=== PATIENT | male | born 1960 | race Caucasian/White ===

== ENCOUNTER → 2016-09-19 | Outpatient (CLI) | payer OTHER ==
[2016-09-19 08:01] LABS: BUN/CREATININE RATIO 14 (0-10)
== END ==
PROVIDERS: Emergency Medicine
DX: G47.09 Other insomnia (principal); I10 Essential (primary) hypertension; M54.5 Low back pain
CPT/HCPCS: 36415; 80053

== ENCOUNTER → 2020-11-07 | Outpatient (CLI) | payer OTHER ==
[2020-11-07 07:38] LABS: BUN/CREATININE RATIO 17 (0-10)
[2020-11-07 07:45] LABS: HEMOGLOBIN 15.7 gm/dl (14.0-17.5); RED BLOOD COUNT 5.65 M/UL (4.20-5.50); WHITE BLOOD COUNT 7.5 K/UL (4.5-11.0)
[2020-11-09 11:11] LABS: CHOLESTEROL, TOTAL 81 mg/dL (100-199); HDL SIZE 8.8 nm (>=9.2); HDL-C 32 mg/dL (>39); HDL-P (TOTAL) 28.6 umol/L (>=30.5); LARGE HDL-P 1.5 umol/L (>=4.8); LDL SIZE 19.7 nm (>20.5); LDL SIZE 19.7 nm (>=20.8); LDL-C 18 mg/dL (0-99); LDL-P 322 nmol/L (<1000); LP-IR SCORE 93 (<=45); SMALL LDL-P 241 nmol/L (<=527); TRIGLYCERIDES 193 mg/dL (0-149); VLDL SIZE 67.2 nm (<=46.6)
[2020-11-10 10:15] LABS: CREATININE, URINE 160.9 mg/dL (Not Estab.)
== END ==
LOC: LAB 06:33
PROVIDERS: Emergency Medicine
DX: Z00.01 Encounter for general adult medical examination with abnormal findings (principal); I10 Essential (primary) hypertension; E78.2 Mixed hyperlipidemia; E11.42 Type 2 diabetes mellitus with diabetic polyneuropathy; E11.65 Type 2 diabetes mellitus with hyperglycemia
CPT/HCPCS: 80053; 80061; 82043; 82570; 83036; 83704; 84156; 84443; 84550; 85025; G0103

== ENCOUNTER → 2021-02-08 | Outpatient (CLI) | payer OTHER ==
[2021-02-08 07:19] LABS: HEMOGLOBIN 15.7 gm/dl (14.0-17.5); RED BLOOD COUNT 5.58 M/UL (4.20-5.50); WHITE BLOOD COUNT 6.7 K/UL (4.5-11.0)
[2021-02-08 08:56] LABS: BUN/CREATININE RATIO 19 (0-10)
== END ==
LOC: LAB 06:38
PROVIDERS: Emergency Medicine
DX: I10 Essential (primary) hypertension (principal); R73.09 Other abnormal glucose; R53.83 Other fatigue; E78.2 Mixed hyperlipidemia
CPT/HCPCS: 36415; 80053; 83036; 85025

== ENCOUNTER → 2021-05-06 | Outpatient (CLI) | payer OTHER ==
[2021-05-06 07:38] LABS: BUN/CREATININE RATIO 20 (0-10)
== END ==
LOC: LAB 06:32
PROVIDERS: Emergency Medicine
DX: E11.65 Type 2 diabetes mellitus with hyperglycemia (principal); I10 Essential (primary) hypertension; E78.2 Mixed hyperlipidemia
CPT/HCPCS: 36415; 80048; 83036

== ENCOUNTER 2021-05-07 09:17 | Emergency (ER) | payer OTHER ==
[2021-05-07 10:24] LABS: HEMOGLOBIN 14.8 gm/dl (14.0-17.5); RED BLOOD COUNT 5.2 M/UL (4.20-5.50); WHITE BLOOD COUNT 7.7 K/UL (4.5-11.0)
[2021-05-07 10:55] LABS: BUN/CREATININE RATIO 15 (0-10)
== END 2021-05-07 12:03 | disposition home or self-care (01) ==
LOC: ER1 09:17
PROVIDERS: Emergency Medicine
DX: E11.65 Type 2 diabetes mellitus with hyperglycemia (principal)
CPT/HCPCS: 71045; 80053; 82550; 82553; 83874; 84484; 85025; 99285; J7030

== ENCOUNTER → 2021-08-13 | Outpatient (CLI) | payer MEDICARE ==
[2021-08-14 07:09] LABS: HEMOGLOBIN A1C 8.6 % (4.8-5.6)
[2021-08-14 08:13] LABS: A/G RATIO 1.9 (1.2-2.2); BILIRUBIN, TOTAL 0.7 mg/dL (0.0-1.2); CALCIUM, SERUM 9.6 mg/dL (8.6-10.2); CREATININE, SERUM 0.85 mg/dL (0.76-1.27); GLOBULIN, TOTAL 2.4 g/dL (1.5-4.5); POTASSIUM, SERUM 4.4 mmol/L (3.5-5.2); PROTEIN, TOTAL, SERUM 6.9 g/dL (6.0-8.5)
[2021-08-15 19:09] LABS: CHOLESTEROL, TOTAL 84 mg/dL (100-199); HDL SIZE 8.9 nm (>=9.2); HDL-C 30 mg/dL (>39); HDL-P (TOTAL) 25.8 umol/L (>=30.5); LARGE HDL-P 2.6 umol/L (>=4.8); LARGE VLDL-P 15.1 nmol/L (<=2.7); LDL SIZE 19.6 nm (>20.5); LDL SIZE 19.6 nm (>=20.8); LDL-C 18 mg/dL (0-99); LDL-P 363 nmol/L (<1000); LP-IR SCORE 91 (<=45); SMALL LDL-P 290 nmol/L (<=527); TRIGLYCERIDES 235 mg/dL (0-149); VLDL SIZE 66.4 nm (<=46.6)
== END ==
LOC: LAB 07:13
PROVIDERS: Emergency Medicine
DX: I10 Essential (primary) hypertension (principal); F41.1 Generalized anxiety disorder; E78.2 Mixed hyperlipidemia; E11.42 Type 2 diabetes mellitus with diabetic polyneuropathy; E11.65 Type 2 diabetes mellitus with hyperglycemia
CPT/HCPCS: 36415; 80053; 80061; 83036; 83704

== ENCOUNTER → 2021-12-06 | Outpatient (CLI) | payer OTHER ==
[2021-12-06 08:35] LABS: BUN/CREATININE RATIO 25 (0-10)
== END ==
LOC: LAB 07:29
PROVIDERS: Emergency Medicine
DX: F31.31 Bipolar disorder, current episode depressed, mild (principal); I10 Essential (primary) hypertension; K21.9 Gastro-esophageal reflux disease without esophagitis; E78.2 Mixed hyperlipidemia; E11.65 Type 2 diabetes mellitus with hyperglycemia
CPT/HCPCS: 36415; 80048; 83036

== ENCOUNTER → 2022-01-13 | Outpatient (CLI) | payer OTHER ==
[2022-01-13 06:56] LABS: RED BLOOD COUNT 5.4 M/UL (4.20-5.50); WHITE BLOOD COUNT 6.8 K/UL (4.5-11.0)
[2022-01-13 07:46] LABS: BUN/CREATININE RATIO 17 (0-10)
== END ==
LOC: LAB 06:15
PROVIDERS: Emergency Medicine
DX: I10 Essential (primary) hypertension (principal); E78.2 Mixed hyperlipidemia; E11.65 Type 2 diabetes mellitus with hyperglycemia
CPT/HCPCS: 36415; 80053; 83036; 85025